=== PATIENT | male | born 1945 | race Caucasian/White ===

== ENCOUNTER 2018-11-10 08:46 | Emergency (ER) | payer MEDICARE ==
[~2018-11-10] VITALS: Ht 182.9 cm; Wt 72.6 kg
== END 2018-11-10 10:15 | disposition home or self-care (01) ==
LOC: ER 08:46
DX: S61.211A Laceration without foreign body of left index finger without damage to nail, initial encounter (principal); W27.0XXA Contact with workbench tool, initial encounter; Z87.891 Personal history of nicotine dependence
CPT/HCPCS: 12001; 99282-25